=== PATIENT | male | born 1990 | race Caucasian/White ===

== ENCOUNTER 2020-06-12 09:53 | Outpatient (CLI) | payer OTHER, SELFPAY ==
[2020-06-12 10:15] LABS: Sperm Present Sperm Not Present
== END 2020-06-12 09:54 | disposition home or self-care (01) ==
LOC: LAB 09:57
PROVIDERS: PCP Urology; Visit Provider Urology
DX: Z98.52 Vasectomy status (principal)
CPT/HCPCS: 89310

== ENCOUNTER 2020-08-03 12:57 | Outpatient (CLI) | payer OTHER, SELFPAY ==
[2020-08-03 13:41] LABS: Sperm Present Sperm Not Present
== END 2020-08-03 12:58 | disposition home or self-care (01) ==
LOC: LAB 12:57
PROVIDERS: PCP Urology; Visit Provider Urology
DX: Z98.52 Vasectomy status (principal)
CPT/HCPCS: 80500; 89310

== ENCOUNTER 2020-10-12 20:11 | Observation (INO) | payer OTHER, SELFPAY ==
[2020-10-12 20:18] VITALS: BP 153/94; PULSE 99; RESP 18; TEMP 36.6; O2SAT 98; BMI 33.0
[2020-10-12 21:52] VITALS: BP 148/92; PULSE 97; RESP 16; O2SAT 98
--- NOTE | 2020-10-12 22:12 | W.ED.ABDPA2 ---
Documented by User: JANY Mckeon 10/12/20 23:43 HPI - Abdominal Pain General: Chief Complaint: Abdominal Pain Stated Complaint: RUQ AND MID ABD PAIN Time Seen by Provider: 10/12/20 22:11 History of Present Illness: HPI narrative: Patient is a 30-year-old male who comes to the ED with abdominal pain. He says symptoms started this morning when he woke up. He says the pain in his abdomen was centrally located and throughout the day the pain has migrated to his right lower quadrant. Pain described as a dull ache. He currently rates the pain 5 out of 10 but says earlier today it was more severe. He says this is the first time he has ever had pain in his abdomen like this. He has not had an appetite today but denies any nausea, vomiting, constipation, diarrhea or UTI symptoms. Denies any fever chills, chest pain or shortness of breath. He denies any past surgeries in the abdomen. Associated Symptoms: Denies chills, constipation, diarrhea, dysuria, fever(s), hematochezia, hematuria, nausea and vomiting Review of Systems Const: Reports: change in appetite (Decreased); Denies: fever(s), chills or fatigue Eyes: Denies: change in vision or eye discomfort ENMT: Denies: throat pain, odynophagia, nasal discharge or nasal congestion Card: Denies: chest pain, palpitations, edema, swelling of feet/ankles, dyspnea on exertion or orthopnea Resp: Denies: dyspnea, productive cough or non-productive cough GI: Reports: abdominal pain (Right lower quadrant and central of the abdomen.); Denies: nausea, vomiting, diarrhea, constipation or hematochezia : Denies: flank pain, difficulty urinating, dysuria or hematuria Musc: Denies: neck pain, back pain or extremity swelling Skin/Breast: Denies: rash or new lesions Neuro: Denies: headache(s), numbness in extremities or weakness in extremities Physical Exam Const: COMMON NORMALS: no acute distress, patient oriented x3 and alert GENERAL APPEARANCE: cooperative and comfortable HENMT: COMMON NORMALS: normocephalic HEAD & SCALP: normocephalic MOUTH: Normal oral and palatal mucosa present THROAT: posterior oropharynx normal and uvula midline Eye: COMMON NORMALS: Equal, round and reactive pupils present PUPIL: Yes Equal, round and reactive pupils present Neck/C-Spine: COMMON NORMALS: supple GENERAL: Yes normal visual inspection Resp: COMMON NORMALS: normal respiratory effort, No retractions, No use of accessory muscles and clear to auscultation bilaterally AUSCULTATION: clear to auscultation bilaterally Cardio: COMMON NORMALS: regular rate, regular rhythm, S1 normal heart sound present, S2 normal heart sound present, No gallops present (Cardio), No clicks present (Cardio), No murmurs present (Cardio) and Peripheral pulses 2+ throughout RATE: regular rate RHYTHM: regular rhythm HEART SOUNDS: S1 normal heart sound present and S2 normal heart sound present PERIPHERAL PULSES: Peripheral pulses 2+ throughout GI: COMMON NORMALS: Normal to inspection, nondistended, normoactive bowel sounds present, Soft to palpation and no masses PALPATION: Yes Soft to palpation and Yes Tenderness to palpation present (GI) Details: RLQ (Positive McBurney's point.) and other (Periumbilical tenderness as well.) : COMMON NORMALS: Yes no CVA tenderness BLADDER/KIDNEY EXAM: Yes no CVA tenderness Back/Pelvis: COMMON NORMALS: no CVA tenderness Extremity: COMMON NORMALS: normal to inspection and no pedal edema Neuro: COMMON NORMALS: patient oriented x3 SENSORIUM/ORIENTATION: Yes alert GAIT: Yes Normal gait present Skin: GENERAL SKIN EXAM: dry skin Course ED course: I went in and discussed patient case with Dr. Burr. Exam findings show right lower quadrant tenderness and suspicious for appendicitis. White blood cell count 15.9. CT of the abdomen showed mildly distended appendix without periappendiceal inflammatory change. Mild to early appendicitis cannot be ruled out. Dr. Burr then he will take over patient care and talk to the general surgeon nonprofit manager to discuss case. Patient signed out to Dr. Burr for further management of patient's care. Vital Signs: Vital signs: Vital Signs Temperature 97.9 F 10/12/20 20:18 Pulse Rate 97 10/13/20 00:21 Respiratory Rate 16 10/13/20 00:21 Blood Pressure 150/92 10/13/20 00:21 Pulse Oximetry 97 10/13/20 00:21 MDM - Abdominal Pain Lab Data: Attestation: I reviewed the patient's lab results. Labs: Lab Results 10/12/20 10/12/20 10/12/20 Range/Units 22:03 22:03 22:08 WBC 15.9 H (4.0-10.0) 10^3/ uL RBC 4.56 (4.1-5.3) 10^6/u L Hgb 14.4 (11.7-16.6) g/dL Hct 42.5 (42.0-52.0) % MCV 93.2 (80-94) fL MCH 31.6 (28.0-34.0) pg MCHC 33.9 (30.0-36.0) g/dL RDW 12.1 (12.1-15.1) % Plt Count 279 (130-400) 10^3/c mm MPV 11.5 H (7.4-10.4) fL Neut % (Auto) 85.4 % Lymph % (Auto) 6.2 % [place] % (Auto) 6.0 % Eos % (Auto) 1.7 % Baso % (Auto) 0.3 % Neut # (Auto) 13.54 H (1.8-7.7) 10^3/u L Lymph # (Auto) 1.0 (0.8-4.8) 10^3/u L [place] # (Auto) 1.0 H (0.2-0.9) 10^3/u L Eos # (Auto) 0.3 (0.0-0.8) 10^3/u L Baso # (Auto) 0.0 (0.0-0.1) 10^3/u L Nucleated RBC % (a uto) 0 % Nucleated RBCs # 0.0 /100WBC Sodium 140 (136-145) mmol/L Potassium 3.9 (3.5-5.1) mmol/L Chloride 104 (98-107) mmol/L Carbon Dioxide 25 (22-29) mmol/L Anion Gap 14.9 (5-19) BUN 10 (6-20) mg/dL Creatinine 0.8 (0.7-1.2) mg/dL GFR Calculation 112.0 (90-130) mL/min Glucose 126 H (65-115) mg/dL Calculated Osmolal ity 291 (285-295) mOsm/k g Calcium 9.6 (8.5-10.5) mg/dL Total Bilirubin 0.5 (0.15-1.2) mg/dL AST 17 (0-40) U/L ALT 25 (0-41) U/L Alkaline Phosphata se 44 (40-130) IU/L Total Protein 7.0 (6.6-8.7) g/dL Albumin 4.5 (3.5-5.2) g/dL Globulin 2.5 (1.3-4.6) g/dL Lipase 46 (13-60) U/L Urine Color Yellow (Yellow) Urine Appearance Clear (CLEAR) Urine pH 5.0 (5-7) Ur Specific Gravit y 1.025 (1.005-1.030) Urine Protein Neg (Negative) Urine Glucose (UA) Norm (Normal) Urine Ketones Negative (Negative) Urine Blood Neg (Negative) Urine Nitrate Negative (Negative) Urine Bilirubin Neg (Negative) Urine Urobilinogen Norm (Negative) mg/dL Ur Leukocyte Patricia ase Negative (Negative) Imaging Data ^: CT Abd/Pel: Attestation: I personally reviewed and interpreted this imaging study as follows: Radiologist's impression: [id number] [id number] [address] Scan Report Signed Patient: Barrett Romero Unit #: [id number] : 1990 Age/Sex: 30 / M ADM Date: 10/12/20 Loc: ER Room/Bed: Attending Dr: Ordering Provider/Ordering MD: Poncho Galeana Date of Service: 10/12/20 Procedure(s): CT abdomen pelvis w con* [id number] Accession Number(s): [id number] Report Number: [id number] PROCEDURE INFORMATION: Exam: CT Abdomen And Pelvis With Contrast Exam date and time: 10/12/2020 10:38 PM Age: 30 years old Clinical indication: Abdominal pain; Additional info: Rlq abdom pain TECHNIQUE: Imaging protocol: Computed tomography of the abdomen and pelvis with intravenous contrast. Axial, coronal and sagittal reformatted images were created and reviewed. Radiation optimization: All CT scans at this facility use at least one of these dose optimization techniques: automated exposure control; mA and/or kV adjustment per patient size (includes targeted exams where dose is matched to clinical indication); or iterative reconstruction. Contrast material: OMNI 300; Contrast volume: 95 ml; Contrast route: INTRAVENOUS (IV); COMPARISON: No relevant prior studies available. RADIATION DOSE METRICS: Total DLP (mGy-cm): 1762.68 FINDINGS: Liver: Unremarkable. Gallbladder and bile ducts: No radiodense gallstones. No biliary ductal dilatation. Pancreas: Unremarkable. Spleen: Unremarkable. Adrenal glands: Normal. No mass. Kidneys and ureters: No mass. No radiodense calculi. No hydronephrosis. Stomach and bowel: Mild proximal small bowel wall thickening. No obstruction. No pneumatosis. Appendix: Mildly distended, somewhat hyperemic appendix without periappendiceal inflammatory change. Intraperitoneal space: No free fluid. No organized fluid collection. No free air. Vasculature: Unremarkable. No aneurysm. Lymph nodes: Small mesenteric lymph nodes, likely reactive. No pathologically enlarged lymph nodes. Urinary bladder: Unremarkable as visualized. Reproductive: Unremarkable. Bones/joints: No acute osseous abnormality. Mild degenerative changes. Mild chronic loss of height along the L2 superior endplate. Soft tissues: Unremarkable. CT/CT abdomen pelvis w con* [id number] IMPRESSION: 1. Mild proximal small bowel wall thickening, suggestive of nonspecific enteritis. 2. Mildly distended, somewhat hyperemic appendix without periappendiceal inflammatory change. Mild/early acute appendicitis cannot be excluded. 3. Additional findings, as above. Radiation Dose CTDIVOL = (mGy): DLP = 1762.68 (mGy-cm) Dictated By: Robert Simons MD Signed By: Robert Simons MD Signed Date/Time: 10/12/202327 DD/ 26 Discharge Plan Discharge Patient Disposition: Placed in Observation Admit Provider: Shan Meade Clinical Impression: Acute appendicitis Qualifiers: Acute appendicitis type: unspecified acute appendicitis type Qualified Code(s): K35.80 - Unspecified acute appendicitis Sign Out Sign Out Data: Patient Sign Out occurred on 10/12/20 at 23:42. Patient's care was discussed, and care was transferred from to Heather Burr. Coding Level of Care Code ED Shucker for Chg Fwd Exam Comprehensive Documented by User: Heather Burr 10/13/20 00:37 HPI - Abdominal Pain General: Chief Complaint: Abdominal Pain Stated Complaint: RUQ AND MID ABD PAIN Time Seen by Provider: 10/12/20 22:11 Course Vital Signs: Vital signs: Vital Signs Temperature 97.9 F 10/12/20 20:18 Pulse Rate 97 10/13/20 00:21 Respiratory Rate 16 10/13/20 00:21 Blood Pressure 150/92 10/13/20 00:21 Pulse Oximetry 97 10/13/20 00:21 MDM - Abdominal Pain MDM Narrative: Medical decision making narrative: [id number] -patient seen and examined by me, I agree with Poncho Galeana's assessment and plan. On exam the patient has pain in the right lower quadrant. No pain in his testicles or flank by history. Patient has elevated white blood cell count and a CT scan showing early appendicitis. I reviewed the case with Dr. Meade is agreeable to admission for IV antibiotics, fluids and likely appendectomy in the a.m. Lab Data: Labs: Lab Results 10/12/20 10/12/20 10/12/20 Range/Units 22:03 22:03 22:08 WBC 15.9 H (4.0-10.0) 10^3/ uL RBC 4.56 (4.1-5.3) 10^6/u L Hgb 14.4 (11.7-16.6) g/dL Hct 42.5 (42.0-52.0) % MCV 93.2 (80-94) fL MCH 31.6 (28.0-34.0) pg MCHC 33.9 (30.0-36.0) g/dL RDW 12.1 (12.1-15.1) % Plt Count 279 (130-400) 10^3/c mm MPV 11.5 H (7.4-10.4) fL Neut % (Auto) 85.4 % Lymph % (Auto) 6.2 % [place] % (Auto) 6.0 % Eos % (Auto) 1.7 % Baso % (Auto) 0.3 % Neut # (Auto) 13.54 H (1.8-7.7) 10^3/u L Lymph # (Auto) 1.0 (0.8-4.8) 10^3/u L [place] # (Auto) 1.0 H (0.2-0.9) 10^3/u L Eos # (Auto) 0.3 (0.0-0.8) 10^3/u L Baso # (Auto) 0.0 (0.0-0.1) 10^3/u L Nucleated RBC % (a uto) 0 % Nucleated RBCs # 0.0 /100WBC Sodium 140 (136-145) mmol/L Potassium 3.9 (3.5-5.1) mmol/L Chloride 104 (98-107) mmol/L Carbon Dioxide 25 (22-29) mmol/L Anion Gap 14.9 (5-19) BUN 10 (6-20) mg/dL Creatinine 0.8 (0.7-1.2) mg/dL GFR Calculation 112.0 (90-130) mL/min Glucose 126 H (65-115) mg/dL Calculated Osmolal ity 291 (285-295) mOsm/k g Calcium 9.6 (8.5-10.5) mg/dL Total Bilirubin 0.5 (0.15-1.2) mg/dL AST 17 (0-40) U/L ALT 25 (0-41) U/L Alkaline Phosphata se 44 (40-130) IU/L Total Protein 7.0 (6.6-8.7) g/dL Albumin 4.5 (3.5-5.2) g/dL Globulin 2.5 (1.3-4.6) g/dL Lipase 46 (13-60) U/L Urine Color Yellow (Yellow) Urine Appearance Clear (CLEAR) Urine pH 5.0 (5-7) Ur Specific Gravit y 1.025 (1.005-1.030) Urine Protein Neg (Negative) Urine Glucose (UA) Norm (Normal) Urine Ketones Negative (Negative) Urine Blood Neg (Negative) Urine Nitrate Negative (Negative) Urine Bilirubin Neg (Negative) Urine Urobilinogen Norm (Negative) mg/dL Ur Leukocyte Patricia ase Negative (Negative) Discharge Plan Discharge Patient Disposition: Placed in Observation Admit Provider: Shan Meade Clinical Impression: Acute appendicitis Qualifiers: Acute appendicitis type: unspecified acute appendicitis type Qualified Code(s): K35.80 - Unspecified acute appendicitis Sign Out Sign Out Data: Patient Sign Out occurred on 10/12/20 at 23:42. Patient's care was discussed, and care was transferred from to Heather De Leon [facility]. Coding Level of Care Code ED Shucker for Kaylee Kwon Exam Comprehensive
[2020-10-12 22:22] LABS: Basophils % 0.3 %; Eosinophils # 0.3 10^3/uL (0.0-0.8); Eosinophils % 1.7 %; Hematocrit 42.5 % (42.0-52.0); Hemoglobin 14.4 g/dL (11.7-16.6); Lymphocytes % 6.2 %; Mean Corpuscular HGB Conc 33.9 g/dL (30.0-36.0); Mean Corpuscular Hemoglobin 31.6 pg (28.0-34.0); Mean Corpuscular Volume 93.2 fL (80-94); Mean Platelet Volume 11.5 fL (7.4-10.4); Neutrophils # 13.54 10^3/uL (1.8-7.7); Neutrophils % 85.4 %; Nucleated Red Blood Cells % 0 %; Platelet Count 279 10^3/cmm (130-400); Red Blood Count 4.56 10^6/uL (4.1-5.3); Red Cell Distribution Width 12.1 % (12.1-15.1); White Blood Count 15.9 10^3/uL (4.0-10.0)
[2020-10-12 22:31] LABS: Alanine Aminotransferase 25 U/L (0-41); Albumin Level 4.5 g/dL (3.5-5.2); Alkaline Phosphatase 44 IU/L (40-130); Anion Gap 14.9 (5-19); Aspartate Amino Transferase 17 U/L (0-40); Blood Urea Nitrogen 10 mg/dL (6-20); Calcium 9.6 mg/dL (8.5-10.5); Carbon Dioxide 25 mmol/L (22-29); Chloride 104 mmol/L (98-107); Globulin 2.5 g/dL (1.3-4.6); Glucose 126 mg/dL (65-115); Lipase 46 U/L (13-60); Osmolality Calculated 291 mOsm/kg (285-295); Potassium 3.9 mmol/L (3.5-5.1); Sodium 140 mmol/L (136-145); Total Bilirubin 0.5 mg/dL (0.15-1.2)
--- NOTE | 2020-10-12 22:36 | CTR_ITS ---
PROCEDURE INFORMATION: Exam: CT Abdomen And Pelvis With Contrast Exam date and time: 10/12/2020 10:38 PM Age: 30 years old Clinical indication: Abdominal pain; Additional info: Rlq abdom pain TECHNIQUE: Imaging protocol: Computed tomography of the abdomen and pelvis with intravenous contrast. Axial, coronal and sagittal reformatted images were created and reviewed. Radiation optimization: All CT scans at this facility use at least one of these dose optimization techniques: automated exposure control; mA and/or kV adjustment per patient size (includes targeted exams where dose is matched to clinical indication); or iterative reconstruction. Contrast material: OMNI 300; Contrast volume: 95 ml; Contrast route: INTRAVENOUS (IV); COMPARISON: No relevant prior studies available. RADIATION DOSE METRICS: Total DLP (mGy-cm): 1762.68 FINDINGS: Liver: Unremarkable. Gallbladder and bile ducts: No radiodense gallstones. No biliary ductal dilatation. Pancreas: Unremarkable. Spleen: Unremarkable. Adrenal glands: Normal. No mass. Kidneys and ureters: No mass. No radiodense calculi. No hydronephrosis. Stomach and bowel: Mild proximal small bowel wall thickening. No obstruction. No pneumatosis. Appendix: Mildly distended, somewhat hyperemic appendix without periappendiceal inflammatory change. Intraperitoneal space: No free fluid. No organized fluid collection. No free air. Vasculature: Unremarkable. No aneurysm. Lymph nodes: Small mesenteric lymph nodes, likely reactive. No pathologically enlarged lymph nodes. Urinary bladder: Unremarkable as visualized. Reproductive: Unremarkable. Bones/joints: No acute osseous abnormality. Mild degenerative changes. Mild chronic loss of height along the L2 superior endplate. Soft tissues: Unremarkable. CT/CT abdomen pelvis w con* [id number] IMPRESSION: 1. Mild proximal small bowel wall thickening, suggestive of nonspecific enteritis. 2. Mildly distended, somewhat hyperemic appendix without periappendiceal inflammatory change. Mild/early acute appendicitis cannot be excluded. 3. Additional findings, as above. Radiation Dose CTDIVOL = (mGy): DLP = 1762.68 (mGy-cm)
[2020-10-12] MEDS: ondansetron 2 mg/ML SDV 2 mL 4 MG IVP (22:48)
[2020-10-12 22:50] VITALS: RESP 16
[2020-10-12] MEDS: morphine 4 mg/mL SDV 1 mL IVP (22:50)
[2020-10-12] MEDS: sodium chloride 0.9% 1,000 ML 999 ML IV (22:51)
[2020-10-12 22:58] LABS: Add Urine Microscopic? NO
[2020-10-12] MEDS: iohexol 300 mg/mL 100 mL Btl IV (23:06)
[2020-10-12 23:07] LABS: Bilirubin Urine Neg (Negative); Blood Urine Neg (Negative); Glucose Urine UA Norm (Normal); Ketones Urine Negative (Negative); Leukocyte Esterase Urine Negative (Negative); Nitrate Urine Negative (Negative); Protein Urine Neg (Negative); Specific Gravity, Urine 1.025 (1.005-1.030); Urine Appearance Clear (CLEAR); Urine Color Yellow (Yellow); Urobilinogen Urine Norm (Negative)
[2020-10-13] VITALS (20 sets, daily range): BP systolic 103–150; BP diastolic 68–99; PULSE 84–118; RESP 12–20; TEMP 36.3–37.3; O2SAT 92–98
[2020-10-13] MEDS: piperacillin-tazobactam 3.375 GM in sodium chloride 0.9% (plus) 50 ML IV ×2 (01:24→10:00)
[2020-10-13] MEDS: dextrose 5%-sod chloride 0.45% 1,000 ML 100 ML IV (01:25)
[2020-10-13] MEDS: morphine 4 mg/mL SDV 1 mL IVP ×2 (03:35→07:41)
[2020-10-13 05:24] LABS: Basophils % 0.2 %; Eosinophils # 0.2 10^3/uL (0.0-0.8); Hematocrit 39.8 % (42.0-52.0); Hemoglobin 13.2 g/dL (11.7-16.6); Lymphocytes # 1.7 10^3/uL (0.8-4.8); Lymphocytes % 11.1 %; Mean Corpuscular HGB Conc 33.2 g/dL (30.0-36.0); Mean Corpuscular Hemoglobin 31.1 pg (28.0-34.0); Mean Corpuscular Volume 93.6 fL (80-94); Mean Platelet Volume 11.9 fL (7.4-10.4); Monocytes # 1.1 10^3/uL (0.2-0.9); Neutrophils # 12.21 10^3/uL (1.8-7.7); Neutrophils % 80.4 %; Nucleated Red Blood Cells % 0 %; Platelet Count 255 10^3/cmm (130-400); Red Blood Count 4.25 10^6/uL (4.1-5.3); Red Cell Distribution Width 12.4 % (12.1-15.1); White Blood Count 15.2 10^3/uL (4.0-10.0)
[2020-10-13 05:53] LABS: Anion Gap 13.9 (5-19); Blood Urea Nitrogen 9 mg/dL (6-20); Calcium 8.9 mg/dL (8.5-10.5); Carbon Dioxide 25 mmol/L (22-29); Chloride 103 mmol/L (98-107); Glucose 106 mg/dL (65-115); Osmolality Calculated 285 mOsm/kg (285-295); Potassium 3.9 mmol/L (3.5-5.1); Sodium 138 mmol/L (136-145)
--- NOTE | 2020-10-13 08:18 | P.ANESASSM_ITS ---
Pre-Anesthetic Assessment Pre-Anesthetic Assessment: Height/Weight: Height 1.85 m Weight 113.398 kg Temp Pulse Resp BP Pulse Ox 99.1 F 107 H 18 123/76 97 10/13/20 08:12 10/13/20 08:12 10/13/20 08:12 10/13/20 08:12 10/13/20 08:12 Preop Diagnosis: acute appendicitis Proposed Procedure: Operation Date: 10/13/20 09:00 Proposed Procedures p Laparoscopic Appendectomy(Not Applicable) - Shan Meade MD Was Beta Elver taken within 24 hours: N/A Last intake: Intake Last Liquid Date 10/12/20 Last Liquid Time 19:00 Last Solid Date 10/12/20 Last Solid Time 15:00 Social: Social History: Tobacco Packs per day: quit years ago Exam: Pre-Anes Outpt Exam: alert, oriented x 3, clear to auscultation bilaterally and No regular rate & rhythm Airway: Submandibular: WNL Cervical ROM: WNL MP: 2 Dentition: Chipped Additional comments: weinberg History/ROS: No significant history except as noted and No significant complaints Pulmonary: Pulmonary: None reported CV/HEM: CV/HEM: None reported : : None reported Hepatic: Hepatic: None reported GI: GI: None reported Metabolic: Metabolic: None reported Musc/skel: Musc/skel: None reported Neuropsych: Neuropsych: None reported Anesthetic Plan: ASA status: 1 Anesthesia: Anesthesia Evaluation and General Risk of > 500 ml blood loss (7ml/kg in children): No Meds/Allergies Current Medications: Current Medications Generic Name Dose Route Start Last Admin Trade Name Freq PRN Reason Stop Dose Admin Dextrose/Sodium Ch loride 1,000 mls @ 100 m ls/hr 10/13/20 00:20 10/13/20 01:25 Dextrose 5%-Sod Chloride 0.45% IV 100 mls/hr .Q10H REBEKAH Administration Piperacillin Sod/T azobactam 50 mls @ 12.5 mls /hr 10/13/20 00:20 10/13/20 05:56 Sod 3.375 gm/ So dium Chloride IV Infused Q8H REBEKAH Infusion Protocol Morphine Sulfate 4 mg 10/13/20 00:20 10/13/20 07:41 Morphine 4 Mg/Ml Sdv 1 Ml IVP 4 mg Q4H PRN Administration SEVERE PAIN Data Anesthesia CBC & Chem 7: 10/13/20 03:56 10/13/20 03:56 Other Labs: Laboratory Results - last 48 hr 10/12/20 10/12/20 10/12/20 22:03 22:03 22:08 WBC 15.9 H RBC 4.56 Hgb 14.4 Hct 42.5 MCV 93.2 MCH 31.6 MCHC 33.9 RDW 12.1 Plt Count 279 MPV 11.5 H Neut % (Auto) 85.4 Lymph % (Auto) 6.2 [place] % (Auto) 6.0 Eos % (Auto) 1.7 Baso % (Auto) 0.3 Neut # (Auto) 13.54 H Lymph # (Auto) 1.0 [place] # (Auto) 1.0 H Eos # (Auto) 0.3 Baso # (Auto) 0.0 Nucleated RBC % (auto) 0 Nucleated RBCs # 0.0 Sodium 140 Potassium 3.9 Chloride 104 Carbon Dioxide 25 Anion Gap 14.9 BUN 10 Creatinine 0.8 GFR Calculation 112.0 Glucose 126 H Calculated Osmolality 291 Calcium 9.6 Total Bilirubin 0.5 AST 17 ALT 25 Alkaline Phosphatase 44 Total Protein 7.0 Albumin 4.5 Globulin 2.5 Lipase 46 Urine Color Yellow Urine Appearance Clear Urine pH 5.0 Ur Specific [place] 1.025 Urine Protein Neg Urine Glucose (UA) Norm Urine Ketones Negative Urine Blood Neg Urine Nitrate Negative Urine Bilirubin Neg Urine Urobilinogen Norm Ur Leukocyte Esterase Negative 10/13/20 10/13/20 03:56 03:56 WBC 15.2 H RBC 4.25 Hgb 13.2 Hct 39.8 L MCV 93.6 MCH 31.1 MCHC 33.2 RDW 12.4 Plt Count 255 MPV 11.9 H Neut % (Auto) 80.4 Lymph % (Auto) 11.1 [place] % (Auto) 7.0 Eos % (Auto) 1.0 Baso % (Auto) 0.2 Neut # (Auto) 12.21 H Lymph # (Auto) 1.7 [place] # (Auto) 1.1 H Eos # (Auto) 0.2 Baso # (Auto) 0.0 Nucleated RBC % (auto) 0 Nucleated RBCs # 0.0 Sodium 138 Potassium 3.9 Chloride 103 Carbon Dioxide 25 Anion Gap 13.9 BUN 9 Creatinine 0.8 GFR Calculation 112.0 Glucose 106 Calculated Osmolality 285 Calcium 8.9 Total Bilirubin AST ALT Alkaline Phosphatase Total Protein Albumin Globulin Lipase Urine Color Urine Appearance Urine pH Ur Specific [place] Urine Protein Urine Glucose (UA) Urine Ketones Urine Blood Urine Nitrate Urine Bilirubin Urine Urobilinogen Ur Leukocyte Esterase Cardiac Studies: No Data to Display
[2020-10-13] MEDS: sodium chloride 0.9% 1,000 ML 30 ML IV (08:22)
--- NOTE | 2020-10-13 08:40 | PM.HP ---
Providers/Chief Complaint Admitting Physician: Shan Meade MD Primary Care Provider: Poncho Lopez MD Chief Complaint: RUQ AND MID ABD PAIN History of Present Illness Barrett Romero is a 30 year old male who presented to the ER last night with abdominal pain. Patient states that he woke up yesterday morning with abdominal pain mainly in the epigastric periumbilical region which over the course of the day migrated to the right lower quadrant. The pain is described as stabbing and severe, did not radiate, no aggravating or relieving factors. Patient denies any nausea, vomiting, fever chills, constipation, diarrhea, urinary symptoms. Notable episodes in the past. Review of Systems General: Reports: 10 or more systems reviewed and unremarkable except in HPI and below Medications/Allergies Home Medications Medication Instructions Recorded Confirmed Last Taken Type No Known Home Medications 10/13/20 10/13/20 Unknown History Allergies Allergy/AdvReac Type Severity Reaction Status Date / Time No Known Allergies Allergy Unverified 04/23/20 10:45 PFSH Acute PFSH: Surgical History H/O vasectomy Vitals/I&O/Wt Last Vital Signs Temp 99.1 F 10/13/20 08:12 Pulse 107 H 10/13/20 08:12 Resp 18 10/13/20 08:12 BP 123/76 10/13/20 08:12 Pulse Ox 97 10/13/20 08:12 10/12/20 10/13/20 10/13/20 22:59 06:59 14:59 Intake Total 50 / 50 Output Total 475 / 475 Balance -425 / -425 Weight last 48 hrs Weight 250 lb Physical Exam Narrative: EXAM NARRATIVE: HEENT: Normocephalic Eye: Sclera /conjunctiva normal Respiratory and chest: Bilateral clear breath sounds on auscultation Cardiovascular: Normal S1 and S2 heart sounds Abdomen: Soft to palpation, tender right lower quadrant Neurological: Oriented to place person and time Skin: Intact, no lesions appreciated on gross exam Data : 10/13/20 03:56 10/13/20 03:56 A&P Assessment and plan (1) Acute appendicitis: 30-year-old male with right lower quadrant pain, leukocytosis and CT scan showing possible early appendicitis. Discussed the findings with the patient. Plan for laparoscopic possible open appendectomy Procedure, risks, benefits and alternatives have been discussed with the patient who wishes to proceed with surgery. Status: Acute Qualifiers: Acute appendicitis type: unspecified acute appendicitis type Qualified Code(s): K35.80 - Unspecified acute appendicitis Attestations Medical Necessity Statement*: Acute appendicitis with plan for laparoscopic appendectomy Coding Level of Care Code Acute Dental Floss Packer for [facility] Fwd Diagnoses Acute appendicitis K35.80 Acute appendicitis type: unspecified acute appendicitis type
--- NOTE | 2020-10-13 10:02 | PM.OP ---
Operative Report Date of procedure: October 13, 2020 Pre-op Diagnosis: acute appendicitis Post-op diagnosis: same Procedure Done: Laparoscopic appendectomy Specimens removed/disposition: Pathology: Appendix Surgeon: Shan Meade Anesthesia: General Condition: stable Disposition: PACU Procedure: The patient was taken to the Operating Room and intubated under general anesthesia after antibiotic had been administered. Using a 15 blade, a 1-cm infraumbilical incision was made and using open Anderson technique, the peritoneal cavity was entered. A 12mm port with balloon was placed and 14 mm of pneumoperitoneum was created and 10-mm 30 degree scope was introduced. Two separate 5mm ports were placed in the left and right lower quadrant under direct visualization. The appendix was noted in the right lower quadrant and appeared acutely inflamed.. Using [place] forceps, an opening was made in the mesoappendix near the base of the appendix. An Endo KP stapler 45mm long 3.5mm blue load was introduced to divide the appendix at it's base. Using electrocautery, the mesoappendix including the appendicular artery was divided. There was some bleeding from the mesoappendix which was suctioned out and an EndoCatch bag was introduced to remove the appendix. All three ports were removed under direct visualization and there was no bleeding noted on the port sites. 10 0.5% [place] was infiltrated at the port sites. The fascia at the umbilical port was closed using figure of eight 0-Vicryl sutures and subcutaneous tissue was approximated using 3-0 Vicryl and skin at all 3 port sites was closed using 4-0 Monocryl and surgical glue. The patient was extubated and transferred recovery room in stable condition
--- NOTE | 2020-10-13 10:04 | P.DS_ITS ---
Discharge Providers Date of Admission: 10/13/20 00:20 Date of Discharge: October 13, 2020 Attending Provider at Admission: Shan Meade MD Attending Provider at Discharge: Shan Meade MD Primary Care Provider: Poncho Lopez MD Diagnoses at Discharge Discharge Diagnosis (1) Acute appendicitis: Status: Resolved Qualifiers: Acute appendicitis type: unspecified acute appendicitis type Qualified Code(s): K35.80 - Unspecified acute appendicitis Reason for Visit Reason for Visit: RUQ AND MID ABD PAIN Hospital Course Hospital Course This is a 30-year-old male who presented to the ER with light upper quadrant pain and CT scan showed early appendicitis. Patient was admitted to the hospital for IV antibiotics and underwent laparoscopic appendectomy the following morning. At time of discharge his vital signs are stable and he was tolerating a clear liquid diet. Discharge Data Data Completed and Pending: Completed Studies During Hospitalization Category Date Time Status CT abdomen pelvis w con* [id number] Urge nt Cat Scan 10/12/20 22:36 Completed Pending at discharge Category Date Time Status ES surgery / GI i mages Routine Exams 10/13/20 08:08 Ordered Pathology: Surgic al [PTH] Routine Pth 10/13/20 09:47 Ordered Labs from last 24 hours 10/13/20 10/13/20 10/12/20 03:56 03:56 22:08 WBC 15.2 H RBC 4.25 Hgb 13.2 Hct 39.8 L MCV 93.6 MCH 31.1 MCHC 33.2 RDW 12.4 Plt Count 255 MPV 11.9 H Neut % (Auto) 80.4 Lymph % (Auto) 11.1 [place] % (Auto) 7.0 Eos % (Auto) 1.0 Baso % (Auto) 0.2 Neut # (Auto) 12.21 H Lymph # (Auto) 1.7 [place] # (Auto) 1.1 H Eos # (Auto) 0.2 Baso # (Auto) 0.0 Nucleated RBC % (a uto) 0 Nucleated RBCs # 0.0 Sodium 138 Potassium 3.9 Chloride 103 Carbon Dioxide 25 Anion Gap 13.9 BUN 9 Creatinine 0.8 GFR Calculation 112.0 Glucose 106 Calculated Osmolal ity 285 Calcium 8.9 Total Bilirubin AST ALT Alkaline Phosphata se Total Protein Albumin Globulin Lipase Urine Color Yellow Urine Appearance Clear Urine pH 5.0 Ur Specific Gravit y 1.025 Urine Protein Neg Urine Glucose (UA) Norm Urine Ketones Negative Urine Blood Neg Urine Nitrate Negative Urine Bilirubin Neg Urine Urobilinogen Norm Ur Leukocyte Patricia ase Negative 10/12/20 10/12/20 22:03 22:03 WBC 15.9 H RBC 4.56 Hgb 14.4 Hct 42.5 MCV 93.2 MCH 31.6 MCHC 33.9 RDW 12.1 Plt Count 279 MPV 11.5 H Neut % (Auto) 85.4 Lymph % (Auto) 6.2 [place] % (Auto) 6.0 Eos % (Auto) 1.7 Baso % (Auto) 0.3 Neut # (Auto) 13.54 H Lymph # (Auto) 1.0 [place] # (Auto) 1.0 H Eos # (Auto) 0.3 Baso # (Auto) 0.0 Nucleated RBC % (a uto) 0 Nucleated RBCs # 0.0 Sodium 140 Potassium 3.9 Chloride 104 Carbon Dioxide 25 Anion Gap 14.9 BUN 10 Creatinine 0.8 GFR Calculation 112.0 Glucose 126 H Calculated Osmolal ity 291 Calcium 9.6 Total Bilirubin 0.5 AST 17 ALT 25 Alkaline Phosphata se 44 Total Protein 7.0 Albumin 4.5 Globulin 2.5 Lipase 46 Urine Color Urine Appearance Urine pH Ur Specific Gravit y Urine Protein Urine Glucose (UA) Urine Ketones Urine Blood Urine Nitrate Urine Bilirubin Urine Urobilinogen Ur Leukocyte Patricia ase Vitals: Last Vital Signs Temp 99.1 F 10/13/20 08:12 Pulse 107 H 10/13/20 08:12 Resp 18 10/13/20 08:12 BP 123/76 10/13/20 08:12 Pulse Ox 97 10/13/20 08:12 Discharge Plan Discharge Patient Disposition: Home Condition: Stable Prescriptions: [place] 5-325 mg tablet 1 tab PO Q6H 7 Days Qty: 20 RF: 0 Zofran 4 mg tablet 4 mg PO Q6H PRN (Reason: nausea and vomiting) Qty: 20 RF: 0 Colace 100 mg capsule 100 mg PO BID Qty: 30 RF: 0 Discharge Orders: Discharge Order (Routine); Ordered 10/13/20 Ordered By: Shan Meade Referrals: Shan Meade MD [Physician] - 10/27/20 2:45 pm Poncho Lopez MD [Primary Care Provider] - 10/20/20 11:00 am Patient Instructions: Hydrocodone/Acetaminophen (By mouth), Laxative, Stool Softeners (By mouth), Ondansetron (By mouth), Laparoscopic Appendectomy (DC) Discharge Attestations Time Spent in Discharge Care*: less than 30 min Quality Metrics Clinical Quality Measures During this hospital stay, did patient experience: None Coding Level of Care Code Acute High Climber for Chg Fwd Diagnoses Acute appendicitis K35.80 Acute appendicitis type: unspecified acute appendicitis type
--- NOTE | 2020-10-13 10:40 | ANE.PACU2 ---
Inpatient post-anesthesia follow up: Airway intact: Yes Vital signs: Temperature 97.4 F Pulse Rate [Monito r] 99 Pulse Rate 118 Respiratory Rate 12 Blood Pressure [Le ft Arm] 153/94 Blood Pressure 150/99 Pulse Oximetry 97 Oxygen Delivery Me thod Simple Mask Oxygen Flow Rate 8 Fraction of Inspir ed Oxygen Hydration adequate: Yes Nausea and vomiting: No Pain level: 3 Mental status: Baseline
[2020-10-13] MEDS: morphine 4 mg/mL SDV 1 mL 3 MG IVP ×2 (11:17→14:09)
[2020-10-13 11:23] LABS: Glucose Point of Care 128 mg/dL (70-110)
--- NOTE | 2020-10-13 15:04 | PC.NURSE ---
Patient taken to private vehicle via wheelchair by advertising copywriter.
== END 2020-10-13 15:02 | disposition home or self-care (01) ==
LOC: ER 23:47 → MEDSURG 10-13 04:56
PROVIDERS: Admitting Provider Surgery; Emergency Provider Emergency Medicine; PCP Family Medicine; Visit Provider Surgery
PROC: 0DTJ4ZZ Resection of Appendix, Percutaneous Endoscopic Approach (ICD-10-PCS; CPT 44970; principal; 2020-10-13 09:00)
DX: K35.80 Unspecified acute appendicitis (principal); Z87.891 Personal history of nicotine dependence
CPT/HCPCS: 44970; 12345; 36415; 36416; 74177; 80048; 80053; 81003; 82962; 83690; 85025; 88304; 96361; 96365; 96366; 96374; 96375; 99283; 99285; G0378; J0330; J1100; J2270; J2405; J2543; J2704; J2710; J3010; J3490; J7030; J7799; Q9967

== ENCOUNTER → 2022-03-17 08:47 | Outpatient (BNVA) | payer OTHER, SELFPAY | PROVIDERS: PCP Family Medicine; Visit Provider Family Medicine Adult Medicine | DX: R35.0 Frequency of micturition (principal); J40 Bronchitis, not specified as acute or chronic | CPT/HCPCS: 81000 ==

== ENCOUNTER → 2022-03-25 14:31 | Outpatient (BNVA) | payer OTHER, SELFPAY | PROVIDERS: PCP Family Medicine; Visit Provider Family Medicine | DX: Z00.00 Encounter for general adult medical examination without abnormal findings (principal); Z20.9 Contact with and (suspected) exposure to unspecified communicable disease; R74.01 Elevation of levels of liver transaminase levels; Z13.1 Encounter for screening for diabetes mellitus | CPT/HCPCS: 80053; 80074; 83036; 85025; 86592; 87491; 87591; 87661; 87806 ==

== ENCOUNTER 2025-06-30 17:03 | Emergency (ER) | payer OTHER, SELFPAY ==
[2025-06-30] VITALS (7 sets, daily range): BP systolic 96–134; BP diastolic 59–81; PULSE 67–92; RESP 16–24; TEMP 36.9; O2SAT 92–98; BMI 28.3
--- OUTSIDE RECORDS SUMMARY | 2025-06-30 17:09 | XMS_ITS | Patient Health Record ---
Author Organization [facility] Address [address] [place] [address] Care Team Providers Care Supervisor [place] Department Name Role Phone Poncho Lopez MD Primary Care Provider Unavailcrescencio bear Jb Alvarez Stephanie [phone] Reason For Referral No Information Medications Medication SIG (Take, Route, Frequency, Duration) Notes Start Date End Date Status Valium 10 MG Tablet 1 tablet Orally Once a day; Duration: 1 day bring to procedure appt 02/25/2020 Active [place] 5-325 MG Tablet 1 tablet as needed Orally every 6 hrs; Duration: 5 days 02/25/2020 Active Immunizations Vaccine Route Administration Date Status Comme nts Influenza, seasonal, injecta ble (split), for 3 yrs and up Unknown 02/25/2020 Refused Social History Tobacco Use: Social History Observation Description Date Details (start date - stop date) Former Smoker NA - NA Social History Depression Screening Social Info Question Answer Notes PHQ-9 Little interest or pleasure in doing thin gs Not at all Feeling down, depressed, or hopeless Not at all Trouble falling or staying asleep, or sleeping t oo much Not at all Feeling tired or having little energy Not at all Poor appetite or overeating Not at all Feeling bad about yourself, or that you are a failure, or have let yourself or your family down Not at all Trouble concentrating on thi ngs, such as reading the newspaper or watching television Not at all Moving or speaking so slowly that other people could have noticed. Or the opposite ? being so fidgety or restless that you have been moving around a lot more than usual Not at all Thoughts that you would be b alexey off , or of hurting yourself in some way Not at all Total Score 0 Drugs/Alcohol: Social Info Question Answer Notes Alcohol Screen (Audit-C) Did you have a drink containing alcohol in the past year? Yes Points 0 Interpretation Negative Tobacco Use: Social Info Question Answer Notes xTobacco Use/Smoking Are you a former smoker Plan Of Treatment Pending Test Test Name Order Date Semen Count Post Vasectomy 27055 020 Insurance Providers Payer Name Payer Address Payer Phone Subscriber Number Group Number Insured Name Patient Relationship to Insured Coverage Start Date Coverage End Date [employer] [address] [address] [place] [address] [id number] BALAJI MALDONADO Self - patient is the insured
--- OUTSIDE RECORDS SUMMARY | 2025-06-30 17:09 | XMS_ITS | Patient Health Record ---
Author Organization [facility] Address [address] [place] [address] Care Team Providers Care [place] Supervisor Name Role Phone Poncho Lopez MD Primary Care Provider RASHAD Guallpa Unavailable [phone] Reason For Referral No Information Medications Medication SIG (Take, Route, Frequency, Duration) Notes Start Date End Date Status Valium 10 MG 1 tablet Orally Once a day; Duration: 1 day bring to procedure appt 02/25/2020 Active [place] 5-325 MG 1 tablet as needed Orally every 6 hrs; Duration: 5 days *Reorder from [facility] for eRx and Interaction Alerts* 02/25/2020 Active Immunizations Vaccine Route Administration Date Status Comme nts Influenza, seasonal, injectable (split), for 3 yrs and up Unknown 02/25/2020 Refused Immunization Giv en by from source eCW:: Plan Of Treatment Pending Test Test Name Order Date Semen Count Post Vasectomy 96136 020 Future Test Test Name Order Date Semen Count Post Vasectomy 01413 020 Insurance Providers Payer Name Payer Address Payer Phone Subscriber Number Group Number Insured Name Patient Relationship to Insured Coverage Start Date Coverage End Date [facility] [address] [address] [place], [place] [phone] [phone] [id number] BALAJI MALDONADO Self - patient is the insured
--- NOTE | 2025-06-30 17:13 | W.ED.ABDPA2 ---
HPI - Abdominal Pain General: Chief Complaint: Abdominal Pain Stated Complaint: abd pain, n/v Time Seen by Provider: 06/30/25 17:12 History of Present Illness: 34-year-old male who presents emergency room with left-sided abdominal pain that started about an hour before he arrived. He is had some nausea and vomiting. Tenderness in the left side. No history of anything like this. states that whenever he he had his appendix out a few years back it was nothing nearly this bad. He has been taking a semaglutide and had his increased dose earlier this week. No diarrhea. Related Data Previous Rx's ?Medication ?Instructions ?Recorded mupirocin 2 % topical ointment 1 applic topical BID #22 grams 10/12/24 sulfamethoxazole 800 1 tab PO BID 10 days #20 tabs 10/12/24 mg-trimethoprim 160 mg tablet (Bactrim DS) cephalexin 500 mg tablet 500 mg PO TID 7 days #21 tabs 06/30/25 hydrocodone 5 mg-acetaminophen 325 1 tab PO Q6H PRN pain #20 tabs 06/30/25 mg tablet ondansetron 8 mg disintegrating 8 mg PO Q6H #14 tabs 06/30/25 tablet polyethylene glycol 3350 17 17 g PO DAILY #510 grams 06/30/25 gram/dose oral powder (Miralax) tamsulosin 0.4 mg capsule (Flomax) 0.4 mg PO DAILY #30 caps 06/30/25 Allergies Allergy/AdvReac Type Severity Reaction Status Date / Time No Known Allergies Allergy Verified 06/30/25 17:10 Review of Systems Narrative: Constitutional symptoms: Negative except as documented in HPI. Skin symptoms: Negative except as documented in HPI. Eye symptoms: Negative except as documented in HPI. ENMT symptoms: Negative except as documented in HPI. Respiratory symptoms: Negative except as documented in HPI. Cardiovascular symptoms: Negative except as documented in HPI. Gastrointestinal symptoms: Negative except as documented in HPI. Genitourinary symptoms: Negative except as documented in HPI. Musculoskeletal symptoms: Negative except as documented in HPI. Neurologic symptoms: Negative except as documented in HPI. Psychiatric symptoms: Negative except as documented in HPI. Endocrine symptoms: Negative except as documented in HPI. [facility] ED PFSH: Medical History (Updated 06/30/25 @ 19:12 by Crystal Stephen MD) Allergic rhinitis due to allergen Bronchitis Surgical History S/P laparoscopic appendectomy (10/13/20) H/O vasectomy Social History Smoking and tobacco/nicotine status: never used tobacco/nicotine Physical Exam Narrative: EXAM NARRATIVE: General: Alert, patient is writhing in the bed in pain Skin: Warm, dry. Head: Normocephalic, atraumatic. Neck: Supple, trachea midline. Eye: Extraocular movements are intact. Ears, nose, mouth and throat: mucosa moist. Cardiovascular: Regular, Normal peripheral perfusion. Respiratory: Lungs are clear to auscultation, respirations are non-labored, breath sounds are equal, Symmetrical chest wall expansion. Gastrointestinal: Soft, left-sided diffuse abdominal tenderness,, Non distended Musculoskeletal: Normal ROM, no deformity. Neurological: Alert and oriented, No focal neurological deficit observed. Psychiatric: Cooperative, appropriate mood & affect. Course Vital Signs: Vital signs: Vital Signs Temperature 98.5 F 06/30/25 17:06 Pulse Rate 92 06/30/25 19:04 Respiratory Rate 24 H 06/30/25 17:06 Blood Pressure 110/67 06/30/25 19:04 Pulse Oximetry 92 06/30/25 19:04 Oxygen Delivery Me thod Room Air 06/30/25 19:04 MDM - Abdominal Pain Medical Decision Making Medical decision making: Differential diagnosis including but not limited to and based on the above HPI, review of systems and physical exam: In this patient with flank pain would have concern for: Ureterolithiasis. Urinary tract infection. Appendicitis. Cholecystitis. Musculoskeletal / back pain. Pyelonephritis. Orders placed to evaluate differential diagnosis based on the above differential, HPI and physical exam Lab Review: Laboratory results were reviewed and interpreted by myself the emergency room physician. No leukocytosis. No anemia. No renal failure. CT of the abdomen pelvis with contrast: 3 mm distal left ureteral stone with mild hydro-. This fits with the patient's presentation. He is feeling much better and resting now. This was reviewed and interpreted by myself the emergency room physician. I also reviewed the radiology report. I reviewed the patient's medical record. Reexamination: Patient is much more comfortable now. Pain is well-controlled. Assessment and plan: Ureterolithiasis Dehydration ?Patient has received multiple doses of Dilaudid. Zofran. Fluids. Home with p.o. pain meds and antiemetics as pharmacy is closed. I discussed findings and red flag signals with his . - Discharged home - Discussed findings and plan with patient. Answered any questions. - All laboratory values were reviewed and interpreted personally by myself, the ER physician - All imaging was reviewed and interpreted personally by myself, the ER physician. - Evaluation and treatment of this problem were appropriate in the emergency setting Lab Data 06/30/25 17:30 06/30/25 17:30 Labs/Radiology: Radiology Impressions Abdomen/Pelvis CT 06/30/25 17:50 IMPRESSION: 3 mm distal left ureteral stone with mild hydronephrosis Laboratory Results WBC 6.45 10^3/uL (3.29-11.43) 06/30/25 17:30 RBC 4.50 10^6/uL (3.85-5.65) 06/30/25 17:30 Hgb 14.00 g/dL (11.27-16.99) 06/30/25 17:30 Hct 41.3 % (37-53) 06/30/25 17:30 MCV 91.8 fl (82-101) 06/30/25 17:30 MCH 31.1 pg (27-33) 06/30/25 17:30 MCHC 33.9 g/dL (30-55) 06/30/25 17:30 RDW 12.3 % (12.1-15.1) 06/30/25 17:30 Plt Count 225 10^3/cmm (157-399) 06/30/25 17:30 MPV 11.7 fL (7.4-10.4) H 06/30/25 17:30 Neut % (Auto) 63.3 % 06/30/25 17:30 Lymph % (Auto) 22.5 % 06/30/25 17:30 [place] % (Auto) 8.7 % 06/30/25 17:30 Eos % (Auto) 4.7 % 06/30/25 17:30 Baso % (Auto) 0.6 % 06/30/25 17:30 Neut # (Auto) 4.09 10^3/uL (1.8-7.7) 06/30/25 17:30 Lymph # (Auto) 1.5 10^3/uL (0.8-4.8) 06/30/25 17:30 [place] # (Auto) 0.6 10^3/uL (0.2-0.9) 06/30/25 17:30 Eos # (Auto) 0.3 10^3/uL (0.0-0.8) 06/30/25 17:30 Baso # (Auto) 0.0 10^3/uL (0.0-0.1) 06/30/25 17:30 Nucleated RBC % (auto) 0 % 06/30/25 17:30 Nucleated RBCs # 0.0 /100WBC 06/30/25 17:30 Sodium 141 mmol/L (136-145) 06/30/25 17:30 Potassium 3.2 mmol/L (3.5-5.1) L 06/30/25 17:30 Chloride 104 mmol/L (98-107) 06/30/25 17: Carbon Dioxide 22 mmol/L (22-29) 06/30/25 17:30 Anion Gap 18.2 (5-19) 06/30/25 17:30 BUN 9 mg/dL (6-20) 06/30/25 17:30 Creatinine 1.0 mg/dL (0.7-1.2) 06/30/25 17:30 GFR Calculation 84.5 mL/min (90-130) L 06/30/25 17:30 Glucose 110 mg/dL (65-115) 06/30/25 17:30 Calculated Osmolality 291 mOsm/kg (285-295) 06/30/25 17:30 Calcium 9.3 mg/dL (8.5-10.5) 06/30/25 17:30 Total Bilirubin 0.8 mg/dL (0.15-1.2) 06/30/25 17:30 AST 13 U/L (0-40) 06/30/25 17:30 ALT 11 U/L (0-41) 06/30/25 17:30 Alkaline Phosphatase 66 U/L (40-130) 06/30/25 17:30 Total Protein 7.1 g/dL (6.6-8.7) 06/30/25 17:30 Albumin 4.7 g/dL (3.5-5.2) 06/30/25 17:30 Globulin 2.4 g/dL (1.3-4.6) 06/30/25 17:30 Lipase 100 U/L (13-60) H 06/30/25 17:30 All radiology interpretation(s) finalized by discharge Discharge Plan Discharge Patient Disposition: Home Clinical Impression: Ureterolithiasis Condition: Stable Prescriptions: New hydrocodone-acetaminophen 5-325 mg tablet 1 tab PO Q6H PRN (Reason: pain) Qty: 20 0RF tamsulosin [Flomax] 0.4 mg capsule 0.4 mg PO DAILY Qty: 30 0RF cephalexin 500 mg tablet 500 mg PO TID 7 Days Qty: 21 0RF polyethylene glycol 3350 [Miralax] 17 gram/dose powder 17 g PO DAILY Qty: 510 0RF Rx Instructions: Take 1 scoop daily while taking pain medications. ondansetron 8 mg tablet,disintegrating 8 mg PO Q6H Qty: 14 0RF Rx Instructions: Take 1/2-1 tab every 6 hours as needed for nausea and vomiting No Action mupirocin 2 % ointment 1 applic topical BID Qty: 22 0RF sulfamethoxazole-trimethoprim [Bactrim DS] 800-160 mg tablet 1 tab PO BID 10 Days Qty: 20 0RF Discharge Orders: Discharge ED (Routine); Ordered 06/30/25 Ordered By: Crystal Stephen Referrals: Dada Reyes [Referring, Urology] - 4-7 days Referral Note: Call for an appointment with Dr. Reyes or with urologist of your choosing. Poncho Lopez MD [Primary Care Provider, Family Practice] Discharge Diet: Usual diet Discharge Activity: Increase activity as tolerated Patient Instructions: Opioid Safety, Pain Management, Patient Portal & Priya Instructions Activity Restrictions/Additional Instructions: Call for appointment with urology. If fever (temp >100.4) develops return to the emergency room immediately, as this is an emergency. Take nausea medication prior to taking pain medications. Thank you for choosing [facility] for your healthcare needs today. You have been screened and evaluated and felt safe for discharge. Health conditions do change or evolve sometimes and as such it is important that you follow up with your Primary Doctor to be re checked, 3-5 days is a general good time frame for follow up. You are always welcome to return to the ED for re assessment if your symptoms are worsening or you have new concerns Print Language: Honduran Coding Level of Care Code ED Medical Csr for aKylee Kwon
[2025-06-30] MEDS: ondansetron 2 mg/ML SDV 2 mL 8 MG IVP (17:35)
[2025-06-30 17:39] LABS: Hematocrit 41.3 % (37-53); Hemoglobin 14.00 g/dL (11.27-16.99); Mean Corpuscular HGB Conc 33.9 g/dL (30-55); Mean Corpuscular Hemoglobin 31.1 pg (27-33); Mean Corpuscular Volume 91.8 fl (82-101); Nucleated Red Blood Cells % 0 %; Platelet Count 225 10^3/cmm (157-399); Red Blood Count 4.50 10^6/uL (3.85-5.65); White Blood Count 6.45 10^3/uL (3.29-11.43)
[2025-06-30] MEDS: HYDROmorphone 0.5 MG/0.5 ML INJ 1 MG IVP (17:39)
--- NOTE | 2025-06-30 17:50 | CTR_ITS ---
PROCEDURE INFORMATION: Exam: CT Abdomen And Pelvis With Contrast Exam date and time: 06/30/2025 6:29 PM Age: 34 years old Clinical indication: Abdominal pain; Acute; Prior surgery; Surgery date: 6+ months; Surgery type: Appy TECHNIQUE: Imaging protocol: Computed tomography of the abdomen and pelvis with contrast. Radiation optimization: All CT scans at this facility use at least one of these dose optimization techniques: automated exposure control; mA and/or kV adjustment per patient size (includes targeted exams where dose is matched to clinical indication); or iterative reconstruction. Contrast material: OMNI 350; Contrast volume: 100 ml; Contrast route: INTRAVENOUS (IV); COMPARISON: CT abdomen pelvis w con* [id number] 10/12/2020 10:56 PM RADIATION DOSE METRICS: Total DLP (mGy-cm): 819.23 FINDINGS: Lungs: Lung bases are clear. No pleural effusion. Liver: Normal. No mass. Gallbladder and biliary ducts: Normal. No calcified stones. No ductal dilation. Pancreas: Normal. No ductal dilation. Spleen: Normal. No splenomegaly. Adrenal glands: Normal. No mass. Kidneys and ureters: There is a 3 mm stone lying in the distal portion of the left ureter. Mild hydronephrosis is noted. Stomach and bowel: Unremarkable. No obstruction. No mucosal thickening. Appendix: No evidence of appendicitis. Intraperitoneal space: Unremarkable. No free air. No significant fluid collection. Vasculature: Unremarkable. No abdominal aortic aneurysm. Lymph nodes: Unremarkable. No enlarged lymph nodes. Urinary bladder: Unremarkable as visualized. Reproductive: The prostate gland is abnormally enlarged. Bones/joints: Unremarkable. No acute fracture. Soft tissues: Unremarkable. CT/CT abdomen pelvis w con* [id number] IMPRESSION: 3 mm distal left ureteral stone with mild hydronephrosis
[2025-06-30 17:52] LABS: Alanine Aminotransferase 11 U/L (0-41); Albumin Level 4.7 g/dL (3.5-5.2); Alkaline Phosphatase 66 U/L (40-130); Anion Gap 18.2 (5-19); Aspartate Amino Transferase 13 U/L (0-40); Blood Urea Nitrogen 9 mg/dL (6-20); Calcium 9.3 mg/dL (8.5-10.5); Carbon Dioxide 22 mmol/L (22-29); Chloride 104 mmol/L (98-107); Creatinine Clr Calc Pharmacy 125.5927; Globulin 2.4 g/dL (1.3-4.6); Glucose 110 mg/dL (65-115); Lipase 100 U/L (13-60); Osmolality Calculated 291 mOsm/kg (285-295); Potassium 3.2 mmol/L (3.5-5.1); Sodium 141 mmol/L (136-145); Total Protein 7.1 g/dL (6.6-8.7)
[2025-06-30] MEDS: iohexol 350 mg/mL 500 mL Btl (per mL) IV (18:33)
[2025-06-30] MEDS: ondansetron 2 mg/ML SDV 2 mL 4 MG IVP (19:42)
[2025-06-30] MEDS: cefTRIAXone 1,000 mg SDV 1000 MG IVP (19:42)
[2025-06-30] MEDS: HYDROmorphone 0.5 MG/0.5 ML INJ IVP (19:42)
[2025-06-30] MEDS: ondansetron hcl ODT 4 mg Tab 8 MG PO (20:42)
[2025-06-30] MEDS: HYDROcodone-acetaminophen 10-325 mg Tablet 2 TAB PO (20:42)
== END 2025-06-30 20:59 | disposition home or self-care (01) ==
PROVIDERS: Physician Assistant; Emergency Provider Emergency Medicine; PCP Family Medicine
DX: N20.1 Calculus of ureter (principal)
CPT/HCPCS: 36415; 74177; 80053; 83690; 85025; 96374; 96375; 96376; 99285; J0696; J1171; J1885; J2405; J7030; J9999; Q0162